=== PATIENT | female | born 1955 | race African-American/Black ===

== ENCOUNTER 2018-05-20 20:31 | Emergency (ER) | payer BC ==
--- NOTE | 2018-05-20 22:29 | EKG REPORT ---
SEVERITY:- BORDERLINE ECG - SINUS RHYTHM BORDERLINE T ABNORMALITIES, ANTERIOR LEADS BORDERLINE PROLONGED QT INTERVAL : Confirmed by: Bill Chavez MD 20-May-2018 22:28:44
[2018-05-20 22:36] LABS: ABSOLUTE BASOPHILS # (AUTO) 0.1 10^3/uL (0.0-0.2); ABSOLUTE EOSINOPHILS # (AUTO) 0.2 10^3/uL (0.0-0.6); ABSOLUTE LYMPHOCYTES (AUTO) 1.7 10^3/uL (0.5-4.7); ABSOLUTE MONOCYTES (AUTO) 1.1 10^3/uL (0.1-1.4); ABSOLUTE NEUT (AUTO) 12.7 10^3/uL (1.7-8.2); BASOPHILS % (AUTO) 0.4 % (0-2); EOSINOPHILS % (AUTO) 1.3 % (0-6); HEMATOCRIT 38.3 % (36.0-47.0); HEMOGLOBIN 13.1 g/dL (12.0-15.5); LYMPHOCYTES % (AUTO) 10.5 % (13-45); MEAN CORPUSCULAR HEMOGLOBIN 25.7 pg (27.0-33.4); MEAN CORPUSCULAR HGB CONC 34.3 g/dL (32.0-36.0); MEAN CORPUSCULAR VOLUME 75 fl (80-97); MONOCYTES % (AUTO) 7.2 % (3-13); PLATELET COUNT 275 10^3/uL (150-450); RED BLOOD COUNT 5.12 10^6/uL (3.72-5.28); RED CELL DISTRIBUTION WIDTH 14.9 % (11.5-14.0); SEGMENTED NEUTROPHILS % (AUTO) 80.6 % (42-78); TOTAL CELLS COUNTED % (AUTO) 100 %; WHITE BLOOD COUNT 15.7 10^3/uL (4.0-10.5)
[2018-05-20 22:57] LABS: ANION GAP 10 (5-19); BLOOD UREA NITROGEN 18 mg/dL (7-20); CALCIUM 10.2 mg/dL (8.4-10.2); CARBON DIOXIDE 29 mmol/L (22-30); CHLORIDE 101 mmol/L (98-107); GLUCOSE 118 mg/dL (75-110); POTASSIUM 3.7 mmol/L (3.6-5.0); SODIUM 139.9 mmol/L (137-145)
--- NOTE | 2018-05-20 23:27 | RADIOLOGY REPORT (SQ) ---
EXAM DESCRIPTION: XR CHEST 1 VIEW COMPLETED DATE/TME: 05/20/2018 23:02 CLINICAL HISTORY: 62 years, Female, cough COMPARISON: 04/24/2012 chest NUMBER OF VIEWS: 1 TECHNIQUE: Portable chest LIMITATIONS: None. FINDINGS: Heart size is normal. Lungs are clear. No pneumothorax IMPRESSION: Negative chest copyright 2011 [employer]- All Rights Reserved
[2018-05-20 23:46] LABS: A TYPE INFLUENZA AG NEGATIVE (NEGATIVE); B INFLUENZA AG NEGATIVE (NEGATIVE)
--- NOTE | 2018-05-21 00:02 | ER Document Report ---
ED General - General Chief Complaint: Syncope Stated Complaint: SYNCOPE EPISODE Time Seen by Provider: 05/20/18 22:06 Primary Care Provider: ANURAG JAIMES MD [Primary Care Provider] - Follow up as needed Notes: Patient is a 62-year-old female with a past medical history of hypertension who presents after syncopal episode. Patient states that while grocery shopping today with her daughter she felt increasingly lightheaded. She states that she was able to complete her shopping and go out to the car. Daughter reports that when the car the patient stated that she felt increasingly lightheaded, was noted to be pale and diaphoretic. The patient then apparently slumped over and lost consciousness. Daughter pulled the vehicle over the side of the road and EMS was contacted. Patient began to wake up slowly thereafter and did not have any symptoms to suggest a postictal phase. At the time of my evaluation she states that she feels completely fine at this time. She denies any preceding chest pain or shortness of breath. No headache. Symptoms did resolve spontaneously. She denies any history of similar symptoms in the past. Was recently started on new blood pressure medication within the past several days. TRAVEL OUTSIDE OF THE [place] IN LAST 30 DAYS: No - Related Data Allergies/Adverse Reactions: No Known Allergies Allergy (Unverified 05/20/18 20:37) Past Medical History - General Information source: Patient - Social History Smoking Status: Never Smoker Frequency of alcohol use: None Lives with: Family Family History: Reviewed & Not Pertinent Patient has suicidal ideation: No Patient has homicidal ideation: No - Past Medical History Cardiac Medical History: Reports: Hx Hypertension Renal/ Medical History: Denies: Hx Peritoneal Dialysis Review of Systems - Review of Systems Notes: Constitutional: Negative for fever. HENT: Negative for sore throat. Eyes: Negative for visual changes. Cardiovascular: Negative for chest pain. Positive for syncope Respiratory: Negative for shortness of breath. Gastrointestinal: Negative for abdominal pain, vomiting or diarrhea. Genitourinary: Negative for dysuria. Musculoskeletal: Negative for back pain. Skin: Negative for rash. Neurological: Negative for headaches, weakness or numbness. 10 point ROS negative except as marked above and in HPI. Physical Exam - Vital signs Vitals: Temp Pulse Resp BP Pulse Ox 99.3 F 84 20 139/73 H 98 05/20/18 21:01 05/20/18 21:01 05/20/18 21:01 05/20/18 21:01 05/20/18 21:01 Interpretation: Normal Notes: PHYSICAL EXAMINATION: GENERAL: Well-appearing, well-nourished and in no acute distress. HEAD: Atraumatic, normocephalic. EYES: Pupils equal round and reactive to light, extraocular movements intact, sclera anicteric, conjunctiva are normal. ENT: nares patent, oropharynx clear without exudates. Moist mucous membranes. NECK: Normal range of motion, supple without lymphadenopathy LUNGS: Breath sounds clear to auscultation bilaterally and equal. No wheezes rales or rhonchi. HEART: Regular rate and rhythm without murmurs ABDOMEN: Soft, nontender, normoactive bowel sounds. No guarding, no rebound. No masses appreciated. EXTREMITIES: Normal range of motion, no pitting or edema. No cyanosis. NEUROLOGICAL: No focal neurological deficits. Moves all extremities spontaneously and on command. PSYCH: Normal mood, normal affect. SKIN: Warm, Dry, normal turgor, no rashes or lesions noted. Course - Re-evaluation Re-evalutation: 05/21/18 00:01 Presentation of syncope of unclear etiology. Patient normotensive, alert, without focal neurologic deficits at time of arrival. Denies syncope was during exertion. No preceding symptoms of palpitations, chest pain, or shortness of breath. Patient asymptomatic at time of arrival. EKG is without evidence of HCOM, right heart strain, ST changes to suggest ischemia, prolong QTc, delta wave, epsilon wave, or Brugada syndrome. Patient denies any family history of sudden cardiac , personal history of of structural heart disease. Patient denies any symptoms to suggest an acute PE, VA, TAD, SAH, seizure, or acute GI bleed as the etiology of their syncope today. On exam, no murmurs to suggest cr itical aortic stenosis as possible etiology. Most probable etiology is that the patient was recently started on new blood pressure medication and is also currently ill with what appears to be a viral upper respiratory infection. Chest x-ray is clear. Based on overall clinical history, exam findings, vitals, and patients appearance, I feel it is safe for patient to be discharged home at this time with close outpatient follow-up and strict return precautions. Patient is in agreement with this plan, has verbalized indications for return to ED, and questions have been answered. - Vital Signs Vital signs: Temp Pulse Resp BP Pulse Ox 98.2 F 84 16 121/59 L 98 05/21/18 00:29 05/20/18 21:01 05/21/18 00:29 05/21/18 00:29 05/21/18 00:29 - Laboratory Result Diagrams: 05/20/18 22:25 05/20/18 22:25 Laboratory results interpreted by me: 05/20/18 05/20/18 22:25 22:25 WBC 15.7 H MCV 75 L MCH 25.7 L RDW 14.9 H Seg Neutrophils % 80.6 H Lymphocytes % 10.5 L Absolute Neutrophils 12.7 H Glucose 118 H - Diagnostic Test Radiology reviewed: Image reviewed, Reports reviewed Radiology results interpreted by me: 05/21/18 00:01 Chest x-ray: No acute infiltrate or pneumothorax - EKG Interpretation by Me Additional EKG results interpreted by me: 05/21/18 00:01 Sinus rhythm, rate 82. No ST elevations or depressions. QTC is 491. Discharge - Discharge Clinical Impression: Viral upper respiratory infection Syncope Qualifiers: Syncope type: unspecified Qualified Code(s): R55 - Syncope and collapse Condition: Good Disposition: HOME, SELF-CARE Additional Instructions: You were seen today after an episode of passing out. Your EKG here is normal. At this time, we do not feel that your episode of passing out was from any life- threatening cause. Please drink plenty of fluids over the next several days. Return to emergency department if you have any further episodes of syncope, headache, weakness, numbness, chest pain, or shortness of breath. Please follow up closely with your primary care physician. Please take your old blood pressure medication until your infectious symptoms clear. If after your infectious symptoms clear your blood pressures are still elevated resume the new blood pressure medication that Dr. Jaimes prescribed you. Forms: Return to Work Referrals: ANURAG JAIMES MD [Primary Care Provider] - Follow up as needed
[2018-05-21 00:30] VITALS: BP 121/59
== END 2018-05-21 00:39 | disposition home or self-care (01) ==
LOC: ER 20:31
DX: R55 Syncope and collapse (principal); J06.9 Acute upper respiratory infection, unspecified; B97.89 Other viral agents as the cause of diseases classified elsewhere; I10 Essential (primary) hypertension
CPT/HCPCS: 36415; 71045; 80048; 84484; 85025; 87804; 93005; 93010; 99284

== ENCOUNTER 2018-07-02 08:37 | Emergency (ER) | payer BC ==
--- NOTE | 2018-07-02 09:20 | ER Document Report ---
ED Medical Screen (RME) - General Chief Complaint: Head Injury Stated Complaint: FALL/HEAD INJURY Time Seen by Provider: 07/02/18 09:10 Primary Care Provider: ANURAG JAIMES MD [Primary Care Provider] - Follow up as needed Mode of Arrival: Ambulatory Information source: Patient Notes: Patient is a 62-year-old female who presents to the emergency department after having a syncopal episode last night. Patient reports multiple episodes of vomiting yesterday prior to the syncope. She states she was sitting on the toilet trying to have a bowel movement when she began vomiting, got sweaty and then blacked out. Patient reports EMS came to her home checked her vital signs and did an EKG and she declined further treatment. Patient wants to be checked out today. Currently patient is complaining of a frontal headache from the area of impact. Patient is not sure what she hit her head on. Patient denies the use of any blood thinners. Exam: Tenderness to palpation to frontal area. Laceration noted to lower lip. Patient alert, oriented and able to follow all commands. I have greeted and performed a rapid initial assessment of this patient. A comprehensive ED assessment and evaluation of the patient, analysis of test results and completion of the medical decision making process will be conducted by additional ED providers. Dictation of this chart was performed using voice recognition software; therefore, there may be some unintended grammatical errors. TRAVEL OUTSIDE OF THE [place] IN LAST 30 DAYS: No - Related Data Allergies/Adverse Reactions: No Known Allergies Allergy (Verified 07/02/18 08:38) Past Medical History - Past Medical History Cardiac Medical History: Reports: Hx Hypertension Renal/ Medical History: Denies: Hx Peritoneal Dialysis Physical Exam - Vital signs Vitals: Temp Pulse Resp BP Pulse Ox 98.3 F 104 H 16 134/73 H 98 07/02/18 08:48 07/02/18 08:48 07/02/18 08:48 07/02/18 08:48 07/02/18 08:48 Course - Vital Signs Vital signs: Temp Pulse Resp BP Pulse Ox 98.3 F 104 H 16 134/73 H 98 07/02/18 08:48 07/02/18 08:48 07/02/18 08:48 07/02/18 08:48 07/02/18 08:48 Doctor's Discharge - Discharge Referrals: ANURAG JAIMES MD [Primary Care Provider] - Follow up as needed
--- NOTE | 2018-07-02 09:38 | ER Document Report ---
ED General - General Chief Complaint: Head Injury Stated Complaint: FALL/HEAD INJURY Time Seen by Provider: 07/02/18 09:10 Primary Care Provider: ANURAG JAIMES MD [Primary Care Provider] - Follow up in 3-5 days Mode of Arrival: Ambulatory Notes: Patient is a 62-year-old female who presents emergency department with a chief complaint of a fall. She states that she fell yesterday around 1830 after vomiting twice throughout the day yesterday with a small amount of diarrhea once. She states that she was using the restroom, but was unable to have a bowel movement and she "passed out." She states that she does not remember falling, but she hit her forehead and her lower lip along with her tooth. EMS came to her house, but patient refused transfer to hospital. She decided to get checked today. Denies any numbness, tingling, or loss of function. She states that last week she was treated for an infection at her primary care doctor was placed on antibiotics. Past medical history includes hypertension, which she is taking amlodipine, valsartan, and hydrochlorothiazide combination. She also does have allergies, which she takes Flonase for. She also states she takes another allergy medication, only as needed. 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 TRAVEL OUTSIDE OF THE [place] IN LAST 30 DAYS: No - Related Data Allergies/Adverse Reactions: No Known Allergies Allergy (Verified 07/02/18 08:38) Past Medical History - General Information source: Patient - Social History Smoking Status: Never Smoker Chew tobacco use (# tins/day): No Frequency of alcohol use: None Drug Abuse: None Family History: Reviewed & Not Pertinent Patient has suicidal ideation: No Patient has homicidal ideation: No - Past Medical History Cardiac Medical History: Reports: Hx Hypertension Renal/ Medical History: Denies: Hx Peritoneal Dialysis Review of Systems - Review of Systems Notes: REVIEW OF SYSTEMS: CONSTITUTIONAL : Denies recent illness. Denies recent unintentional weight loss. Denies fever, chills, or sweats. EENT: Denies eye, ear, throat, or mouth pain, discharge, or symptoms. Denies nasal or sinus congestion. CARDIOVASCULAR: Denies chest pain. RESPIRATORY: Denies shortness of breath, cough, congestion, difficulty breathing, or wheezing. GASTROINTESTINAL: See HPI GENITOURINARY: Denies difficulty urinating, burning, blood in urine, urgency or frequency. MUSCULOSKELETAL: Denies neck and back pain. Denies joint pain or swelling. SKIN: Denies rash, itchiness, or lesions HEMATOLOGIC : Denies easy bruising or bleeding. LYMPHATIC: Denies swollen, painful, enlarged glands. NEUROLOGICAL: See HPI PSYCHIATRIC: Denies stress, anxiety, alteration in sleep patterns, or depression. All other systems reviewed and negative. Physical Exam - Vital signs Vitals: Temp Pulse Resp BP Pulse Ox 98.3 F 104 H 16 134/73 H 98 07/02/18 08:48 07/02/18 08:48 07/02/18 08:48 07/02/18 08:48 07/02/18 08:48 - Notes Notes: PHYSICAL EXAMINATION: GENERAL: Appears well, healthy, well-nourished, no acute distress. HEAD: Normocephalic, atraumatic. EYES: PERRL, conjunctiva normal, all extraocular movements intact, sclera n onicteric ENT: Moist mucous membranes. Laceration noted to left lower lip, but is not repairable. NECK: Supple, no noticeable swelling, redness, rash. Normal range of motion. LUNGS: Equal breath sounds bilaterally and clear to auscultation. No wheezes rales or rhonchi. CARDIOVASCULAR: S1-S2, regular rate, regular rhythm. Radial pulses 2+, normal. ABDOMEN: Normoactive bowel sounds. Soft, nontender, no guarding, no rebound tenderness, and no masses palpated. EXTREMITIES: Normal strength and range of motion, no pitting or edema. No cyanosis. NEUROLOGICAL: Moves all extremities upon command. Strength 5/5 in all extremities. PSYCH: Normal mood, normal affect. SKIN: Warm, dry. No rash, lesions, ulcerations noted. Normal skin turgor. Course - Re-evaluation Re-evalutation: 07/02/18 11:00 Potassium is 2.8. Her potassium will be replaced here in the emergency department. She also receive a liter of fluids. Her CT of her head is negative for any acute intracranial bleed. A repeat EKG will be done after her potassium is replaced. 07/02/18 12:49 Since patient is able to tolerate oral medications, she will be only given 40 MEQ's of potassium IV and another 30 MEQ's p.o. 07/02/18 14:39 Repeat EKG still shows first-degree heart block. She will follow-up with her primary care provider and with cardiology in regards to this visit. She is nontoxic in appearance. I do not suspect she has any life-threatening etiology at this time. She states that she feels well. She will be sent home with Tucker. Verbal discharge instructions were given to the patient. They verbalized understanding. They are stable for discharge. - Vital Signs Vital signs: Temp Pulse Resp BP Pulse Ox 98.0 F 95 17 121/75 94 07/02/18 14:31 07/02/18 10:04 07/02/18 14:31 07/02/18 14:31 07/02/18 14:31 - Laboratory Result Diagrams: 07/02/18 09:57 07/02/18 09:57 Laboratory results interpreted by me: 07/02/18 07/02/18 07/02/18 09:57 09:57 09:57 MCV 75 L MCH 25.5 L RDW 14.9 H Seg Neutrophils % 79.7 H Potassium 2.8 L* Glucose 132 H Total Protein 8.4 H Urine Blood SMALL H Urine Urobilinogen 4.0 H Ur Leukocyte Esterase SMALL H - EKG Interpretation by Me Additional EKG results interpreted by me: 07/02/18 09:36 Sinus rhythm with first-degree heart block. Rate 89. DE 216; QRS 94; QT 380; QTC 436. No ST elevations or depressions. 07/02/18 14:15 Repeat EKG : Sinus rhythm with first-degree heart block. Rate 95; DE 212; QRS 88; QT 339; QTC 426. No ST elevations or depressions. Discharge - Discharge Clinical Impression: Hypokalemia, Dehydration, First degree heart block by electrocardiogram Diarrhea Qualifiers: Diarrhea type: unspecified type Qualified Code(s): R19.7 - Diarrhea, unspecifie d Lip laceration Qualifiers: Encounter type: initial encounter Qualified Code(s): S01.511A - Laceration without foreign body of lip, initial encounter Condition: Stable Disposition: HOME, SELF-CARE Additional Instructions: You were seen today in the emergency department after a fall that you had yesterday. Please make sure you follow-up with your primary care doctor in regards to this visit. Start eating, please start with clear liquids. Once you are able to tolerate clear liquids, continue with the brat diet: Bananas, rice, applesauce, and toast. You have been given Zofran, medication to help with nausea and vomiting. You can take 1 tablet every 4-6 hours as needed. If you have worsening symptoms, or have any symptoms that are worrisome to you, please return to the emergency department. Forms: Return to Work Referrals: ANURAG JAIMES MD [Primary Care Provider] - Follow up in 3-5 days
[2018-07-02 10:14] LABS: ABSOLUTE LYMPHOCYTES (AUTO) 1.3 10^3/uL (0.5-4.7); ABSOLUTE MONOCYTES (AUTO) 0.6 10^3/uL (0.1-1.4); BASOPHILS % (AUTO) 0.4 % (0-2); EOSINOPHILS % (AUTO) 0.1 % (0-6); HEMATOCRIT 36.7 % (36.0-47.0); HEMOGLOBIN 12.5 g/dL (12.0-15.5); LYMPHOCYTES % (AUTO) 13.4 % (13-45); MEAN CORPUSCULAR HEMOGLOBIN 25.5 pg (27.0-33.4); MEAN CORPUSCULAR VOLUME 75 fl (80-97); MONOCYTES % (AUTO) 6.4 % (3-13); PLATELET COUNT 231 10^3/uL (150-450); RED CELL DISTRIBUTION WIDTH 14.9 % (11.5-14.0); SEGMENTED NEUTROPHILS % (AUTO) 79.7 % (42-78); TOTAL CELLS COUNTED % (AUTO) 100 %
[2018-07-02 10:23] LABS: APPEARANCE,URINE SLIGHTLY-CLOUDY; BILIRUBIN,URINE NEGATIVE (NEGATIVE); COLOR,URINE YELLOW; GLUCOSE, URINE NEGATIVE (NEGATIVE); KETONES,URINE NEGATIVE (NEGATIVE); LEUKOCYTE ESTERASE,URINE SMALL (NEGATIVE); NITRITE,URINE NEGATIVE (NEGATIVE); PROTEIN,URINE NEGATIVE (NEGATIVE); URINE SPECIFIC GRAVITY 1.024
[2018-07-02 10:27] LABS: ALANINE AMINOTRANSFERASE 21 U/L (9-52); ALBUMIN 4.5 g/dL (3.5-5.0); ALKALINE PHOSPHATASE 113 U/L (38-126); ANION GAP 14 (5-19); ASPARTATE AMINO TRANSFERASE 27 U/L (14-36); BILIRUBIN,DIRECT 0.2 mg/dL (0.0-0.4); BILIRUBIN,TOTAL 0.5 mg/dL (0.2-1.3); BLOOD UREA NITROGEN 18 mg/dL (7-20); CALCIUM 9.7 mg/dL (8.4-10.2); CARBON DIOXIDE 28 mmol/L (22-30); CHLORIDE 99 mmol/L (98-107); GLUCOSE 132 mg/dL (75-110); SODIUM 140.6 mmol/L (137-145); TOTAL PROTEIN 8.4 g/dL (6.3-8.2)
--- NOTE | 2018-07-02 10:31 | RADIOLOGY REPORT (SQ) ---
EXAM DESCRIPTION: CT HEAD WITHOUT COMPLETED DATE/TIME: 07/02/2018 10:14 am REASON FOR STUDY: fall fall injury, frontal facial pain COMPARISON: None. TECHNIQUE: Axial images acquired through the brain without intravenous contrast. Images reviewed wi th bone, brain and subdural windows. Additional sagittal and coronal reconstructions were generated. Images stored on PACS. All CT scanners at this facility use dose modulation, iterative reconstruction, and/or weight based d osing when appropriate to reduce radiation dose to as low as reasonably achievable (ALARA). [facility]: Dose Right [facility]: CareDose [facility]: Dose Right [facility]: Teradose 4D [facility]: [employer] RADIATION DOSE: CT Rad equipment meets quality standard of care and radiation dose reduction techniq ues were employed. CTDIvol: 53.2 mGy. DLP: 991 mGy-cm. mGy. LIMITATIONS: None. FINDINGS: VENTRICLES: Normal size and contour. CEREBRUM: No masses. No hemorrhage. No midline shift. No evidence for acute infarction. Normal gra y/white matter differentiation. No areas of low density in the white matter. CEREBELLUM: No masses. No hemorrhage. No alteration of density. No evidence for acute infarction. EXTRAAXIAL SPACES: No fluid collections. No masses. ORBITS AND GLOBE: No intra- or extraconal masses. Normal contour of globe without masses. CALVARIUM: No fracture. PARANASAL SINUSES: Minimal debris in the dependent portion of the right and left maxillary sinuses li jono related to pre-existing inflammatory change SOFT TISSUES: No mass or hematoma. OTHER: No other significant finding. IMPRESSION: No acute intracranial changes Minimal maxillary sinus inflammatory change EVIDENCE OF ACUTE STROKE: NO. COMMENT: Quality ID # [id number]: Final reports with documentation of one or more dose reduction techniques (e.g., Automated exposure control, adjustment of the mA and/or kV according to patient size, use of iterative reconstruction technique) TECHNICAL DOCUMENTATION: JOB ID: [id number] [email or web address]- All Rights Reserved Reading location - IP/workstation name: [email or web address]
[2018-07-02 10:33] LABS: POTASSIUM 2.8 mmol/L (3.6-5.0)
[2018-07-02] MEDS ORDERED: NORMAL SALINE 1000 ML 1,000 ML IV ONE ×2 (10:42→10:54)
[2018-07-02] MEDS ORDERED: RINGERS SOLUTION,LACTATED 1,000 ML IV ONE (10:44)
[2018-07-02] MEDS: POTASSI CL 20 MEQ/50 ML RIDER 20 MEQ/50 ML RTUPB IV SCH ×2 (10:55→12:39)
[2018-07-02] MEDS ORDERED: POTASSIUM CHLORIDE 10 MEQ CAPSULE.ER PO ONE (12:25)
[2018-07-02] MEDS ORDERED: ONDANSETRON ODT 4 MG TAB (6 TAB/ER DISP) PO PRN (14:40)
[2018-07-02 14:58] VITALS: BP 121/75
--- NOTE | 2018-07-02 20:46 | EKG REPORT ---
SEVERITY:- ABNORMAL ECG - SINUS RHYTHM FIRST DEGREE AV BLOCK BORDERLINE T ABNORMALITIES, INFERIOR LEADS : Confirmed by: Graciela Bowen 02-Jul-2018 20:45:45
--- NOTE | 2018-07-02 20:47 | EKG REPORT ---
SEVERITY:- ABNORMAL ECG - SINUS RHYTHM FIRST DEGREE AV BLOCK PROBABLE LEFT ATRIAL ABNORMALITY BORDERLINE T ABNORMALITIES, ANTERIOR LEADS : Confirmed by: Graciela Bowen 02-Jul-2018 20:45:52
== END 2018-07-02 14:58 | disposition home or self-care (01) ==
LOC: ER 08:37
DX: S01.511A Laceration without foreign body of lip, initial encounter (principal); W18.11XA Fall from or off toilet without subsequent striking against object, initial encounter; Y93.89 Activity, other specified; Y92.002 Bathroom of unspecified non-institutional (private) residence as the place of occurrence of the external cause; I44.0 Atrioventricular block, first degree; E86.0 Dehydration; E87.6 Hypokalemia; R55 Syncope and collapse; R19.7 Diarrhea, unspecified; R11.10 Vomiting, unspecified; I10 Essential (primary) hypertension; T78.40XA Allergy, unspecified, initial encounter; Z79.899 Other long term (current) drug therapy
CPT/HCPCS: 93005; 99284; 96365; 96366; 36415; 85025; 80053; 81001; 84484; 70450; 93010; J3480; J7030